=== PATIENT | female | born 1945 | race Caucasian/White ===

== ENCOUNTER → 2021-01-28 | Outpatient (CLI) | payer MEDICARE, BC | END | disposition home or self-care (01) | LOC: WOU 08:45 | PROVIDERS: ATTEND Podiatrist Foot & Ankle Surgery | DX: S92.515D Nondisplaced fracture of proximal phalanx of left lesser toe(s), subsequent encounter for fracture with routine healing (principal); X58.XXXD Exposure to other specified factors, subsequent encounter; S90.32XD Contusion of left foot, subsequent encounter; M79.672 Pain in left foot; R60.0 Localized edema; I69.354 Hemiplegia and hemiparesis following cerebral infarction affecting left non-dominant side; I10 Essential (primary) hypertension; Z87.891 Personal history of nicotine dependence; Z79.02 Long term (current) use of antithrombotics/antiplatelets; Z79.82 Long term (current) use of aspirin | CPT/HCPCS: G0463 ==

== ENCOUNTER 2021-02-18 09:04 | Outpatient (CLI) | payer MEDICARE, BC | END 2021-02-18 23:59 | disposition home or self-care (01) | LOC: WOU 09:04 | PROVIDERS: ATTEND Podiatrist Foot & Ankle Surgery | DX: S92.515D Nondisplaced fracture of proximal phalanx of left lesser toe(s), subsequent encounter for fracture with routine healing (principal); X58.XXXD Exposure to other specified factors, subsequent encounter; R60.0 Localized edema; M79.672 Pain in left foot; I69.354 Hemiplegia and hemiparesis following cerebral infarction affecting left non-dominant side; I10 Essential (primary) hypertension; Z79.02 Long term (current) use of antithrombotics/antiplatelets; Z79.82 Long term (current) use of aspirin | CPT/HCPCS: G0463 ==

== ENCOUNTER 2021-08-06 14:20 | Outpatient (CLI) | payer MEDICARE, BC | END 2021-08-06 23:59 | disposition home or self-care (01) | LOC: WOU 14:20 | PROVIDERS: ATTEND Podiatrist Foot & Ankle Surgery | DX: B35.1 Tinea unguium (principal); R60.0 Localized edema; M79.672 Pain in left foot; M79.671 Pain in right foot; Z79.02 Long term (current) use of antithrombotics/antiplatelets; Z79.82 Long term (current) use of aspirin | CPT/HCPCS: G0463 ==